=== PATIENT | female | born 1995 | race Caucasian/White ===

== ENCOUNTER → 2021-05-25 09:17 | Outpatient (CLI) | payer OTHER, SELFPAY ==
[2021-05-25 10:03] LABS: Absolute Lymphocyte Count 1.13 X10^3/uL (0.83-4.51); Absolute Neutrophil Count 3.9 X10^3/uL (2.0-7.7); Basophil# 0.04 X10^3/uL; Basophil% 0.7 % (0-1); Eosinophil# 0.15 X10^3/uL; Eosinophils% 2.7 % (0-5); Hematocrit 37.8 % (37-47); Hemoglobin 12.6 g/dL (12.0-15.0); Lymphocyte # 1.13 X10^3/ul (0.83-4.51); Mean Corp Hgb Conc 33.3 g/dL (32-36); Mean Corpuscular Hgb 29.6 pg (27.0-32.0); Mean Corpuscular Volume 88.9 fL (81-99); Mean Platelet Vol. 10.6 fl (6.2-12.0); Monocyte# 0.41 X10^3/uL; Monocyte% 7.3 % (0-10); NRBC Flagged by Analyzer 0 % (0-5); Neutrophil # 3.89 X10^3/uL (2.7-7.7); Neutrophil % 68.9 % (47-70); Platelet Count 184 K/mm3 (150-450); RBC Distribution Width CV 12.3 % (11.6-14.6); Red Blood Count 4.25 M/mm3 (4.2-5.4); White Blood Count 5.6 K/mm3 (4.4-11.0)
[2021-05-25 11:08] LABS: HIV - WCH Non-Reactive (Nonreactive); Hepatitis B Surface Antigen Non-Reactive (Nonreactive); Hepatitis C Antibody Non-Reactive (Nonreactive); Rubella IgG Reactive (Nonreactive); Syphilis Antibodies Non-reactive
[2021-05-27 20:08] LABS: Chlamydia By Nucleic Acid AMP Negative (Negative)
[2021-05-27 22:22] LABS: Gonococcus By Nucleic Acid AMP Negative (Negative)
[2021-05-28 14:14] LABS: HPV Reflexed? NOT INDICATED
== END ==
PROVIDERS: Visit Provider Obstetrics & Gynecology
DX: Z34.82 Encounter for supervision of other normal pregnancy, second trimester (principal)
CPT/HCPCS: 36415; 85025; 86703; 86762; 86780; 86803; 87086; 87340; 87491; 87591; 88175; G0145

== ENCOUNTER → 2021-06-09 | Outpatient (CLI) | payer OTHER, SELFPAY | END | disposition home or self-care (01) | LOC: LABSPEC 14:13 | PROVIDERS: Visit Provider Obstetrics & Gynecology | DX: N39.0 Urinary tract infection, site not specified (principal) | CPT/HCPCS: 87086 ==

== ENCOUNTER → 2021-08-01 | Outpatient (CLI) | payer OTHER, SELFPAY | END | disposition home or self-care (01) | LOC: LABSPEC 15:18 | PROVIDERS: Visit Provider Obstetrics & Gynecology | DX: R31.9 Hematuria, unspecified (principal) | CPT/HCPCS: 87086; 87088 ==

== ENCOUNTER → 2021-08-22 16:19 | Outpatient (CLI) | payer OTHER, SELFPAY ==
[2021-08-22 17:30] LABS: Hematocrit 35.1 % (37-47); Hemoglobin 11.6 g/dL (12.0-15.0); Mean Corpuscular Hgb 30.1 pg (27.0-32.0); Mean Corpuscular Volume 90.9 fL (81-99); Mean Platelet Vol. 9.4 fl (6.2-12.0); Platelet Count 203 K/mm3 (150-450); RBC Distribution Width CV 12.7 % (11.6-14.6); RBC Distribution Width SD 41.6 fl (35.1-43.9); Red Blood Count 3.86 M/mm3 (4.2-5.4); White Blood Count 9.7 K/mm3 (4.4-11.0)
[2021-08-22 17:36] LABS: Glucose Challenge Gest 1H 50g 107 mg/dL (70-140)
== END ==
PROVIDERS: Visit Provider Obstetrics & Gynecology
DX: O26.899 Other specified pregnancy related conditions, unspecified trimester (principal); R35.0 Frequency of micturition; Z3A.00 Weeks of gestation of pregnancy not specified
CPT/HCPCS: 36415; 82950; 85027; 87086; 87088

== ENCOUNTER → 2021-09-05 16:20 | Outpatient (CLI) | payer OTHER, SELFPAY | PROVIDERS: Visit Provider Obstetrics & Gynecology | DX: Z34.82 Encounter for supervision of other normal pregnancy, second trimester (principal) | CPT/HCPCS: 36415; 86850 ==

== ENCOUNTER 2021-11-10 16:43 | Outpatient (CLI) | payer OTHER, SELFPAY | END 2021-11-10 23:59 | disposition short-term general hospital (02) | LOC: WOBLAB 16:44 | PROVIDERS: Visit Provider Obstetrics & Gynecology | DX: Z36.85 Encounter for antenatal screening for Streptococcus B (principal) | CPT/HCPCS: 87081 ==

== ENCOUNTER 2021-12-03 23:21 | Inpatient (IN) | payer OTHER, SELFPAY ==
[2021-12-03 02:51] VITALS: PULSE 202; TEMP 36.7; O2SAT 88
[2021-12-03 02:57] VITALS: BP 123/77; PULSE 79; PULSE 81; O2SAT 98
[2021-12-03 21:19] VITALS: TEMP 35.6
[2021-12-03 21:22] VITALS: BP 141/85; PULSE 73
[2021-12-03] MEDS: Lactated Ringers 500 ML 999 ML IV (23:05)
[2021-12-03 23:20] VITALS: BMI 38.0
[2021-12-03] MEDS: Lactated Ringers 1,000 ML 50 ML IV (23:36)
[2021-12-03 23:49] VITALS: TEMP 37.2
[2021-12-03 23:50] VITALS: PULSE 94; O2SAT 98
[2021-12-04] VITALS (69 sets, daily range): BP systolic 93–152; BP diastolic 50–88; PULSE 63–116; TEMP 36.4–38; O2SAT 77–100
[2021-12-04 00:28] LABS: Absolute Lymphocyte Count 1.38 X10^3/uL (0.83-4.51); Absolute Neutrophil Count 7.4 X10^3/uL (2.0-7.7); Basophil# 0.05 X10^3/uL; Basophil% 0.5 % (0-1); Eosinophil# 0.12 X10^3/uL; Eosinophils% 1.2 % (0-5); Hematocrit 37.2 % (37-47); Hemoglobin 12.3 g/dL (12.0-15.0); Lymphocyte # 1.38 X10^3/ul (0.83-4.51); Lymphocyte % 14.1 % (19-41); Mean Corp Hgb Conc 33.1 g/dL (32-36); Mean Corpuscular Hgb 29.1 pg (27.0-32.0); Mean Corpuscular Volume 87.9 fL (81-99); Mean Platelet Vol. 9.9 fl (6.2-12.0); Monocyte% 7.2 % (0-10); NRBC Flagged by Analyzer 0 % (0-5); Neutrophil # 7.44 X10^3/uL (2.7-7.7); Neutrophil % 76.3 % (47-70); Platelet Count 187 K/mm3 (150-450); RBC Distribution Width CV 13.2 % (11.6-14.6); RBC Distribution Width SD 42.5 fl (35.1-43.9); Red Blood Count 4.23 M/mm3 (4.2-5.4); White Blood Count 9.8 K/mm3 (4.4-11.0)
[2021-12-04] MEDS: Lactated Ringers 500 ML 999 ML IV ×3 (01:45→11:47)
[2021-12-04] MEDS: fentaNYL-bupivacaine (epidural) 100 ML BAG EPIDURAL ×4 (03:20→22:03)
[2021-12-04] MEDS: Lactated Ringers 1,000 ML 200 ML IV ×4 (03:44→20:52)
[2021-12-04] MEDS: Oxytocin 30 units/NS 500 ml 30 UNITS/500 ML IV.SOLN IV (07:03)
[2021-12-04 08:01] LABS: ROM Internal Control Test YES-OK TO RESULT pt. (Internal QC); ROM Patient Test POSITIVE (Negative)
--- NOTE | 2021-12-04 09:44 | PCM.HP.BLA ---
History and Physical Date of Admission: 12/03/21 HPI: 26-year-old G1 at 40/2, JAGDISH 12/02/2021 by LMP, admitted with spontaneous rupture of membranes. Reports contractions. Denies vaginal bleeding. Reports movement. Denies headache, vision changes, chest pain or shortness of breath, nausea or vomiting, fevers or chills. uncomplicated [employer]RAVER [employer] MOLD history: G1 current Medical history: History of nephrolithiasis Surgical history denies Allergies: No known drug allergies Medications: vitamin Social history: Denies tobacco, alcohol, drug use Family history: Noncontributory Review of systems: Negative otherwise stated above Physical exam Vitals:Temp 98.5 ?F, pulse 75, blood pressure 135/55, O2 saturation 97% on room air General: Resting in bed in no acute distress HEENT: Normocephalic/atraumatic, PERRLA Cardiorespiratory: No increased effort, regular heart rate Abdomen: Soft, nontender, gravid Extremities: Minimal edema Musculoskeletal: Full range of motion throughout all extremities, strength 5/5 throughout Neurologic: Cranial nerves 2 through 12 grossly intact CE: 4/80/-3, AROM for bag clear fluid panel: GBS negative on 11/10/2021 Gonorrhea/chlamydia negative HIV negative Hepatitis C/hepatitis B negative/negative Syphilis negative Rubella immune Labs on admission: WBC 9.8, hemoglobin/hematocrit 12.3/37.2, platelets 187 Covid negative heart rate: 140/moderate variability/plus Accel/no decelerations [place]: q 2-3 Assessment/plan: 26-year-old G1 at 40/2 weeks admitted with prelabor rupture of membranes. Uncomplicated . -Admit to labor and delivery, routine orders -GBS negative -Augment with Pitocin if no longer making cervical change Assessment & Plan Assessment/Plan (1) Spontaneous rupture of membranes: (2) Active labor at term:
--- NOTE | 2021-12-04 09:54 | PCM.PN.BLA ---
Progress Note Patient seen early on 12/03/2021 for contractions. Cervix 1 cm per RN, recheck unchanged. status reassuring with reactive NST. Rare contractions. Discharge home with labor precautions
[2021-12-04] MEDS: Acetaminophen 500 MG Tablet PO (13:59)
[2021-12-04] MEDS: Acetaminophen 500 MG Tablet 1000 MG PO (18:02)
--- NOTE | 2021-12-04 21:33 | PN_ITS ---
Progress Note Diagnosis of intraamniotic infection based on two elevated temperature 100.4F. tachycardia also present. Started on ampicillin 2g q6h and gentamicin 5 mg/kg x1. Pt currently pushing at 10 cm. Cat II tracing. Progressing with pushing efforts. Discussed diagnosis with patient and . Hotel Operation Manager will be at delivery.
--- NOTE | 2021-12-04 23:03 | PLAC_PTH ---
PATIENT: EMMANUELLE LOERA LOC: [facility] U#:[id number] AGE/SX: 26/F ROOM: WP005 RE12/03/[address]: Dr. Ludivina Parmar DO : 1995 BED: 1 DIS: 12/06/2021 SPEC #: [id number] RECD: 12/05/21 02:26 STATUS: WILMA MICHEAL #: [id number] SANDER: 12/04/21 23:[address]: Ludivina Parmar DEPT: SURGICAL PATHOLOGY RECD BY: Joi Topete Tissues: Placenta, NOS Procedures: Surgery Specimen Level V HEADER OPERATION: Vaginal delivery PRE-OP DIAGNOSIS: Positive triple I TISSUE SUBMITTED: Placenta MICROSCOPIC DIAGNOSIS Peraza placenta (549 gm): Umbilical cord ? trivascular with acute funisitis. Placental membranes ? acute chorioamnionitis and acute deciduitis. Placental disc ? remote infarct, organizing intraparenchymal hemorrhage. Focal nonspecific chronic villitis, [place]rav[place]ilipp change and increased intraparenchymal fibrin plaques. AM:sj 12/07/2021 MICROSCOPIC DESCRIPTION Slides are reviewed. GROSS DESCRIPTION SPECIMEN: PLACENTA / CLINICAL INFORMATION: A. Weight: 3.2 kg B. Gestational Age: 40 weeks C. Sex: Female PLACENTAL WEIGHT (POST FIXATION): 549 gm PLACENTAL DIMENSIONS: 19 x 16 x 2.8 cm PLACENTAL SHAPE: Usual ovoid PLACENTAL WEIGHT FOR GESTATIONAL AGE: Over 99th percentile MEMBRANES - Present A. Insertion: Marginal B. Site of rupture from edge: At edge of placental disc C. Color of membrane: Serrano-powell D. Abnormalities: None UMBILICAL CORD - Present A. Color: Serrano-powell B. Insertion: Eccentric C. Length: 42 cm D. Diameter: 1.2 cm E. Number of vessels: Three F. Abnormalities: None PLACENTAL DISC - Present A. Color of surface: Serrano-powell B. surface abnormalities: None C. Maternal cotyledons: Intact with minimal tears D. Attached retro placental clot: No clot E. Cut surface: Dark red and spongy F. Lesions: One lesion, plaque-like, white-serrano in color measuring 3.5 x 3.5 x 0.8 cm. G. Separate clot: Absent SECTIONS SUBMITTED: 1. Umbilical cord ( end notched) 2. Umbilical cord, placental end 3. Membrane roll 4. Placental disc, and maternal surfaces, lesion 5. Placental disc, and maternal surfaces 6. Placental disc, and maternal surfaces AM:sj 12/06/2021 TC:2 CPT: 36434
[2021-12-04] MEDS: Oxytocin 30 units/NS 500 ml 30 UNITS/500 ML IV.SOLN 334 UNITS IV (23:08)
--- NOTE | 2021-12-04 23:34 | EX.PCM.OBRPT ---
Maternal Data Information Final JAGDISH: 12/02/21 Vaginal Delivery Operative Information Date of Procedure: 12/04/21 Pre-Operative Diagnosis: Peraza intrauterine , intrapartum infection Post-Operative Diagnosis: [place]aza intrauterine , intrapartum infection Surgery / Procedure Performed: Spontaneous Vaginal Delivery Type of Anesthesia: Epidural Estimated Blood Loss: 350cc Findings Description of Procedure: Spontaneous vaginal delivery viable female. Nuchal cord x1, loose, delivered through. Baby to mom. Cord clamped and cut. Baby moved to waiting secretary office clerk and nursing staff. Spontaneous delivery of placenta. Second-degree laceration repaired in the usual fashion, hemostatic. Maternal fever resolved, no further doses of antibiotics. CBC in morning. Cord Gases: VBG Infant A Gender: Female (1 minute): 5 (5 minute): 8
[2021-12-05] VITALS (14 sets, daily range): BP systolic 99–127; BP diastolic 55–68; PULSE 69–105; RESP 16–18; TEMP 36.2–37.2; O2SAT 89–98
[2021-12-05] MEDS: Ibuprofen 600 MG Tablet PO ×2 (01:27→14:28)
[2021-12-05 05:44] LABS: Absolute Lymphocyte Count 0.94 X10^3/uL (0.83-4.51); Absolute Neutrophil Count 14.4 X10^3/uL (2.0-7.7); Basophil# 0.03 X10^3/uL; Basophil% 0.2 % (0-1); Eosinophil# 0.05 X10^3/uL; Eosinophils% 0.3 % (0-5); Hematocrit 29.4 % (37-47); Hemoglobin 9.8 g/dL (12.0-15.0); Lymphocyte # 0.94 X10^3/ul (0.83-4.51); Lymphocyte % 5.7 % (19-41); Mean Corp Hgb Conc 33.3 g/dL (32-36); Mean Corpuscular Hgb 29.4 pg (27.0-32.0); Mean Corpuscular Volume 88.3 fL (81-99); Mean Platelet Vol. 9.6 fl (6.2-12.0); Monocyte# 0.95 X10^3/uL; Monocyte% 5.8 % (0-10); NRBC Flagged by Analyzer 0 % (0-5); Neutrophil # 14.35 X10^3/uL (2.7-7.7); Neutrophil % 87.5 % (47-70); POSITIVE MORPHOLOGY YES; Platelet Count 139 K/mm3 (150-450); RBC Distribution Width CV 13.3 % (11.6-14.6); RBC Distribution Width SD 42.5 fl (35.1-43.9); Red Blood Count 3.33 M/mm3 (4.2-5.4); White Blood Count 16.4 K/mm3 (4.4-11.0)
[2021-12-05 05:49] LABS: Differential Indicated SCAN CRITERIA MET
--- NOTE | 2021-12-05 08:08 | PCM.PN.OB ---
Subjective Subjective No overnight complaints. Denies fevers chills, chest pain, shortness of breath, abdominal pain Objective Data Objective Data Vital Signs: Vital Signs Temp Pulse Resp BP Pulse Ox 97.2 F L 69 16 116/68 98 12/05/21 08:05 12/05/21 08:05 12/05/21 08:05 12/05/21 08:05 12/05/21 08:05 Oxygen Delivery Method Room Air Weight: 214 lb 11.684 oz Body Mass Index (BMI) 38.0 Intake & Output: Intake and Output for Last 24 Hours 12/03/21 12/04/21 12/05/21 23:59 23:59 23:59 Intake Total 500 / 500 5783.06 / 5783.06 333 / 333 Output Total 1300 / 1300 600 / 600 Balance 500 / 500 4483.06 / 4483.06 -267 / -267 Lab / Micro Data Result Diagrams: 12/05/21 05:30 Labs: Laboratory Results - last 24 hr 12/05/21 05:30: WBC 16.4 H, RBC 3.33 L, Hgb 9.8 L, Hct 29.4 L, MCV 88.3, MCH 29.4, MCHC 33.3, RDW Std Deviation 42.5, RDW Coeff of [place] 13.3, Plt Count 139 L, MPV 9.6, Immature Gran % (Auto) 0.500, Neut % (Auto) 87.5 H, Lymph % (Auto) 5.7 L, [place] % (Auto) 5.8, Eos % (Auto) 0.3, Baso % (Auto) 0.2, Absolute Neuts (auto) 14.4 H, Absolute Lymphs (auto) 0.94, Nucleated RBC % 0 Micro: Microbiology 12/03/21 23:55 Nasal Secretion SARS-CoV-2 Antigen (Rapid) - Final Physical Exam Const alert, oriented x3, no apparent distress, average body habitus, healthy appearing and well nourished Exam Limitations: no limitations HEENT normocephalic and moist oral mucous membranes Head and Scalp: atraumatic Face and Sinus: normal facial exam Eyes PERRL Neck full ROM Resp normal respiratory effort, no retractions and no use of accessory muscles Psych mental status grossly normal, affect normal, speech normal and activity/motor behavior normal Assessment & Plan (1) Vaginal delivery: PLAN: day 1. Breast-feeding. Suspected chorioamnionitis status post antibiotics. Afebrile, asymptomatic. We will continue to monitor signs and symptoms and treat fevers as needed.
--- NOTE | 2021-12-05 10:55 | NURSING ---
300cc in hat. patient also missed hat
[2021-12-05] MEDS: Acetaminophen 500 MG Tablet 1000 MG PO (14:28)
[2021-12-06] MEDS: Ibuprofen 600 MG Tablet PO ×2 (00:31→08:59)
[2021-12-06 00:35] VITALS: BP 116/52; PULSE 86; RESP 18; TEMP 36.3
[2021-12-06 03:41] VITALS: BP 116/72; PULSE 83; RESP 18; TEMP 36.1
[2021-12-06 08:28] VITALS: BP 118/77; PULSE 67; RESP 16; TEMP 36.4
--- NOTE | 2021-12-06 09:13 | PCM.DC.SUM ---
Providers Date of Admission: 12/03/21 Reason For Visit: VAGINAL DELIVERY Diagnosis Discharge Diagnosis (1) Vaginal delivery: Status: Acute Code(s): O80 - Encounter for full-term uncomplicated delivery Medications at Discharge Home Medications vit-iron fum-folic ac 1 tab PO DAILY 12/03/21 ibuprofen 600 mg PO Q8H PRN PRN #30 tab 12/06/21 Hospital Course Operations None Procedures None Summary of Care Provided Hospital Course: 26 year old 1 was admitted with SROM at 40 2/7wga. She had intrapartum fever and was started on Ampicillin/Gentamicin. She had an uncomplicated vaginal delivery. She was discharged to home on day #2 after remaining afebrile x 36 hours. Physical Exam Const alert, oriented x3 and no apparent distress General Appearance: cooperative and comfortable HEENT normocephalic Resp Auscultation: clear to auscultation bilaterally Cardio regular rate, regular rhythm, S1 normal heart sound and S2 normal heart sound OB / External & Speculum: other Uterus Palpation: other OB Fundus firm and nontender Extremity General Extremity: edema bilateral Weight / BMI Weight Weight: 97.4 kg Body Mass Index (BMI) 38.0 ABG / Lab / Microbiology Data Result Diagrams: 12/05/21 05:30 Laboratory: Laboratory Results - last 24 hr 12/05/21 05:30: Screen NEGATIVE, Baby's Blood Type A NEGATIVE, Baby's LIEN NEGATIVE Microbiology: Microbiology 12/03/21 23:55 Nasal Secretion SARS-CoV-2 Antigen (Rapid) - Final D/C Instructions Discharge Diet: No restrictions May resume sexual activity in: 6 weeks Lifting Restrictions: 20-25lb Call your doctor if you observe: Fever of 101 or Higher, Using more than 1 pad per hour, Shortness of breath, Chest pain, Calf discomfort, Uncontrolled pain and - (Persistent or severe headache, vision changes) Please Follow Up With: Arnold Parmar MD When: 3 weeks for telehealth follow up 6 weeks for visit Meaningful Use Info Meaningful Use Diagnoses (Choose all that apply): None applicable Discharge Plan Admission Admit Date/Time: 12/03/21 23:21 Primary Reason for Your Visit: Vaginal delivery Attending Provider: Ludivina Parmar Discharge Orders/Prescriptions Prescriptions: New ibuprofen 600 mg Tablet 600 mg PO Q8H PRN PRN (Reason: Pain Score 1-3) Qty: 30 RF: 0 Continued vit-iron fum-folic ac 65 mg iron- 1 mg Tablet 1 tab PO DAILY RF: 0 Disposition Disposition (needs filled in before D/C Order can be placed): Home, Self Care
[2021-12-06 12:15] VITALS: BP 122/68; PULSE 84; RESP 16; TEMP 36.3
[2021-12-07 15:21] LABS: Pathology Specimen OB SEE PATHOLOGY REPORT
== END 2021-12-06 13:30 | disposition home or self-care (01) | DRG 805 ==
LOC: WP 12-04 03:21
PROVIDERS: Admitting Provider Student in an Organized Health Care Education/Training Program; Referring Provider Student in an Organized Health Care Education/Training Program; Visit Provider Student in an Organized Health Care Education/Training Program
DX: O69.81X0 Labor and delivery complicated by cord around neck, without compression, not applicable or unspecified (principal); Z37.0 Single live birth; O41.1230 Chorioamnionitis, third trimester, not applicable or unspecified; Z87.442 Personal history of urinary calculi; Z3A.40 40 weeks gestation of pregnancy
CPT/HCPCS: 59025; 59050; 84112; 85025; 85461; 86850; 86900; 86901; 87426; 88307; 90384; 99218; J7120; G0378; J2790; J3490

== ENCOUNTER 2021-12-11 15:03 | Emergency (ER) | payer OTHER, SELFPAY ==
[2021-12-11 15:05] VITALS: BP 130/86; PULSE 110; RESP 16; TEMP 36.6; O2SAT 99; BMI 36.3
[2021-12-11 15:25] VITALS: PULSE 87; RESP 16; O2SAT 98
[2021-12-11 15:50] LABS: Absolute Lymphocyte Count 0.87 X10^3/uL (0.83-4.51); Absolute Neutrophil Count 9.7 X10^3/uL (2.0-7.7); Basophil# 0.03 X10^3/uL; Basophil% 0.3 % (0-1); Eosinophil# 0.17 X10^3/uL; Eosinophils% 1.5 % (0-5); Hematocrit 33.3 % (37-47); Hemoglobin 11.3 g/dL (12.0-15.0); Lymphocyte # 0.87 X10^3/ul (0.83-4.51); Lymphocyte % 7.4 % (19-41); Mean Corp Hgb Conc 33.9 g/dL (32-36); Mean Corpuscular Hgb 29.7 pg (27.0-32.0); Mean Corpuscular Volume 87.6 fL (81-99); Mean Platelet Vol. 8.7 fl (6.2-12.0); Monocyte# 0.83 X10^3/uL; Monocyte% 7.1 % (0-10); NRBC Flagged by Analyzer 0 % (0-5); Neutrophil # 9.68 X10^3/uL (2.7-7.7); Neutrophil % 82.5 % (47-70); Platelet Count 279 K/mm3 (150-450); RBC Distribution Width CV 12.8 % (11.6-14.6); White Blood Count 11.7 K/mm3 (4.4-11.0)
[2021-12-11 15:57] LABS: Anion Gap 8 (5-15); BUN 17 mg/dL (7-18); BUN/Creat Ratio 17.3 RATIO (10-20); Calcium,Total 8.8 mg/dL (8.5-10.1); Chloride 103 mmol/L (98-107); Creatinine, Serum 0.98 mg/dL (0.55-1.02); EST Glomerular Filtration Rate 71 mL/min (>60); Est Glom Filt Rate - Afr Amer 86 mL/min (>60); Glucose 98 mg/dL (74-106); Potassium 4.2 mmol/L (3.5-5.1); Sodium Level 134 mmol/L (136-145)
--- NOTE | 2021-12-11 16:11 | CT_ITS ---
STUDY: CT ABDOMEN AND PELVIS WITH CONTRAST REASON FOR EXAM: Female, 26 years old. fever, RLQ pain -- IV PO Contrast RADIATION DOSAGE (If Supplied By Facility): CTDIvol = ( 14.92 ) mGy, DLP = ( 909.68 ) mGycm TECHNIQUE: Transaxial images were obtained from the dome of the diaphragm to the symphysis pubis with oral contrast. Oral and amp; IV Gastrografin and amp; 100mL Isovue-300 was administered. Sagittal and coronal images were reconstructed. Individualized dose optimization techniques were used for this CT. COMPARISON: None. FINDINGS: The visualized lung bases are unremarkable. The visualized portions of the heart are within normal limits. Normal liver. Normal gallbladder and extrahepatic biliary system. Normal spleen. Normal pancreas. Normal bilateral adrenal glands. 3 mm calyceal stone seen in the midpole of the right kidney, 5. 5.4 mm calyceal stone seen in the mid to lower pole of the right kidney, and 2 additional stones are seen in the mid to upper pole junction of the right kidney measuring 2 mm and 6 mm respectively. Several tiny cysts are present in both kidneys which are benign and require no additional imaging. 4-5 less than 3 mm stones are scattered throughout the left kidney. Mild hydronephrosis and proximal hydroureter are present bilaterally, however no radiopaque ureteral or bladder stones are present to suggest obstruction. The enlarged boggy uterus projects into the lower abdomen and exerts mass effect on the ureters and apex of the bladder which is likely the cause for the hydronephrosis. Moderate size right ovary. Normal left ovary. Vascularity is seen bilaterally. Normal left kidney. Normal visualized stomach. Normal small intestine. Normal colon. The appendix is visualized and appears normal, see image 40/114 series 601 coronal images. Normal abdominal aorta. Normal inferior vena cava. Normal retroperitoneum. Normal urinary bladder. Normal abdominal wall. Normal osseous structures. CT/Abdomen/Pelvis WITH Contrast IMPRESSION: 1. Multiple bilateral kidney stones. Mild hydronephrosis and proximal hydroureter are present bilaterally, however no radiopaque ureteral or bladder stones are present to suggest obstruction. The enlarged boggy uterus projects into the lower abdomen and exerts mass effect on the ureters and apex of the bladder which is likely the cause for the hydronephrosis. 2. Moderate size right ovary. Normal left ovary. Vascularity is seen bilaterally. Electronically Signed: Harley Harvey MD at 19:13 EST Reading Location ID and State: [facility] / [place] , Service support ,
--- NOTE | 2021-12-11 16:12 | EDS_ITS ---
HPI History of Present Illness Chief Complaint: Abd Pain Informant: patient Onset/Context/Timing Onset: Today Context: Gradual Onset Current Severity: Mild Maximum Severity: Moderate Narrative Narrative: Patient presents secondary to right lower quadrant pain and fever. Patient had a vaginal delivery 1 week ago. She had intrapartum fever and was treated with ampicillin and gentamicin. She was discharged 2 days after delivery after she had been afebrile for 36 hours. Patient states she had not noted a fever again until today. She developed a fever and chills this afternoon and right lower quadrant abdominal pain. She has no urinary symptoms. PFSH PFS Medical History Kidney stones Home Medications vit-iron fum-folic ac 1 tab PO DAILY 12/03/21 [History Last Taken 12/03/21] ibuprofen 600 mg PO Q8H PRN PRN #30 tab 12/06/21 [Rx Last Taken Unknown] Allergy/AdvReac Type Severity Reaction Status Date / Time No Known Allergies Allergy Verified 12/11/21 15:08 Surgical History Hx of shoulder surgery Social History Smoking Status: Never smoker ROS ROS ED Constitutional Constitutional ED: Reports chills and fever(s) Eyes Eyes: Denies change in vision ENT ENT ED: Denies sore throat Cardiovascular Cardiovascular: Denies chest pain Respiratory/Chest Respiratory/Chest: Denies cough or dyspnea Gastrointestinal Gastrointestinal: Reports abdominal pain; Denies diarrhea, nausea or vomiting Genitourinary Genitourinary ED: Denies dysuria Musculoskeletal Musculoskeletal: Denies back pain Integumentary Denies rash Neurologic Neurologic: Denies headache(s) or weakness Allergic/Immunologic Allergic/Immunologic ED: Denies urticaria EXAM Physical Exam Const Vital Signs: 12/11/21 15:05 12/11/21 15:25 12/11/21 18:09 Temperature 98 F Temperature Source Temporal Pulse Rate 110 H 87 96 Respiratory Rate 16 16 15 Blood Pressure 130/86 H 117/71 Blood Pressure Mean 100 86 Pulse Ox 99 98 97 Oxygen Delivery Method Room Air Room Air Room Air Positive well nourished and well developed General Appearance ED: well developed HEENT Reports moist mucous membranes Eyes PERRL and EOMs intact bilaterally Neck supple Chest Wall inspection of chest normal and palpation of chest normal Resp normal respiratory effort and clear to auscultation bilaterally Cardio regular rate and regular rhythm GI Palpation: soft and tender RLQ Extremity normal to inspection Neuro oriented x3 Sensorium / Orientation: alert Psych mental status grossly normal Skin no rashes or lesions noted MDM MDM MDM Narrative Medical decision making narrative: Patient declined anything for pain. Lab work and urinalysis ordered. Lab Data Attestation: I reviewed the patient's lab results. Labs: Laboratory Results - last 24 hr 12/11/21 12/11/21 12/11/21 15:38 15:38 16:41 WBC 11.7 H RBC 3.80 L Hgb 11.3 L Hct 33.3 L MCV 87.6 MCH 29.7 MCHC 33.9 RDW Std Deviation 41.0 RDW Coeff of [place] 12.8 Plt Count 279 MPV 8.7 Immature Gran % (Auto) 1.200 H Neut % (Auto) 82.5 H Lymph % (Auto) 7.4 L [place] % (Auto) 7.1 Eos % (Auto) 1.5 Baso % (Auto) 0.3 Absolute Neuts (auto) 9.7 H Absolute Lymphs (auto) 0.87 Nucleated RBC % 0 Sodium 134 L Potassium 4.2 Chloride 103 Carbon Dioxide 23.0 Anion Gap 8 BUN 17 Creatinine 0.98 Estim Creat Clear Calc 70.70 Est GFR (MDRD) Af Amer 86 Est GFR (MDRD) Non-Af 71 BUN/Creatinine Ratio 17.3 Glucose 98 Calcium 8.8 Urine Color Yellow Urine Clarity Sl. Cloudy Urine pH 7.0 Ur Specific [place] 1.005 Urine Protein 30 H Urine Glucose (UA) Normal Urine Ketones Negative Urine Occult Blood 250 H Urine Nitrite Negative Urine Bilirubin Negative Urine Urobilinogen Normal Ur Leukocyte Esterase 500 H Urine RBC 0 SEEN Urine WBC 25-50 SEEN Ur Squamous Epith Cells 0-5 SEEN Ur Renal Epithelial Cell 5-10 SEEN Urine Bacteria 0 SEEN Urine Mucus 0 SEEN Radiography Chest X-Ray - ED: 1 View, Read by ED Physician, Normal, Heart, Lungs and Mediastinum Diagnostic Testing: Clinical Impression(s) from Imaging Studies Abdomen/Pelvis CT 12/11/21 16:11 IMPRESSION: 1. Multiple bilateral kidney stones. Mild hydronephrosis and proximal hydroureter are present bilaterally, however no radiopaque ureteral or bladder stones are present to suggest obstruction. The enlarged boggy uterus projects into the lower abdomen and exerts mass effect on the ureters and apex of the bladder which is likely the cause for the hydronephrosis. 2. Moderate size right ovary. Normal left ovary. Vascularity is seen bilaterally. Electronically Signed: Harley Harvey MD at 19:13 EST , Chest X-Ray 12/11/21 17:05 IMPRESSION: No evidence of acute cardiopulmonary process. Electronically Signed: Prateek Morel DO at 17:20 EST , Treatment and Re-Evaluation Comments:: Covid test is negative. Lab work reveals mild leukocytosis with a white count 11.7. Chemistry studies normal. Urinalysis shows 25-50 white cells but 0 bacteria and no nitrates. Chest x-ray reveals no infiltrate. CT scan of the abdomen and pelvis shows mild hydronephrosis they believe secondary to mass- effect on the bladder from distended uterus. No evidence of ureteral stone. Moderate sized right ovary noted. Normal left ovary. Test results discussed with patient and at bedside. Patient discussed with Dr. Arnold Parmar, on-call for [employer]. Patient is to call the office tomorr ow with an update with how she is feeling. They will see her in the office this week for follow-up. Patient has had no fever while in the emergency room here. Discharge Plan Triage Chief Complaint: Abd Pain ED Provider: Ai Mitchell Dx/Rx/DC Orders Clinical Impression: Fever Instructions: ED Abdominal Pain Unkn Cause Fem, ED FUO Adult Prescriptions: No Action vit-iron fum-folic ac 65 mg iron- 1 mg Tablet 1 tab PO DAILY RF: 0 ibuprofen 600 mg Tablet 600 mg PO Q8H PRN PRN (Reason: Pain Score 1-3) Qty: 30 RF: 0 Referrals: Arnold Galvan [Other] Ludivina Parmar DO [STAFF PHYSICIAN] - 3-5 Days Disposition Disposition: Home, Self Care
[2021-12-11 16:49] LABS: Bacteria 0 SEEN /hpf (None Seen); Mucous, Urine 0 SEEN /hpf (<or=2+); Red Blood Cells-Urine 0 SEEN /hpf (0-5)
--- NOTE | 2021-12-11 17:05 | RAD_ITS ---
STUDY: X-RAY CHEST REASON FOR EXAM: Female, 26 years old. fever TECHNIQUE: Single AP portable view of the chest. COMPARISON: None. FINDINGS: The lungs are clear and expanded. There is no demonstrated pleural abnormality. Normal size heart. Normal mediastinum and maia. Normal visualized pulmonary arteries. Normal visualized aortic arch and descending thoracic aorta. Normal visualized thoracic spine. Normal visualized ribs, clavicles, and shoulders. There is no demonstrated abnormality of the visualized soft tissue structures of the upper abdomen. RAD/Chest 1 View (Portable) IMPRESSION: No evidence of acute cardiopulmonary process. Electronically Signed: Prateek Morel DO at 17:20 EST ,
[2021-12-11 17:24] LABS: Color, Urine Yellow (Yellow); Glucose, Dipstick Normal (Normal); Ketone-Dipstick Negative (Negative); Leukocyte Esterase-Dipstick 500 /ul (Negative); Nitrite-Dipstick Negative (Negative); Occult Blood-Urine 250 /ul (Negative); Protein-Dipstick 30 mg/dl (Negative); Specific Gravity, Urine 1.005 (1.002-1.030); Urine Bilirubin Dipstick Negative (Negative); Urine Clarity Sl. Cloudy (Clear); Urine Urobilinogen Normal (Normal)
[2021-12-11 17:45] LABS: Renal Epithelial Cells 5-10 SEEN /hpf (0-5); White Blood Cells 25-50 SEEN /hpf (0-5)
[2021-12-11 17:46] LABS: Squamous Epithelial Cells - UA 0-5 SEEN /hpf (5-10)
[2021-12-11 18:09] VITALS: BP 117/71; PULSE 96; RESP 15; O2SAT 97
[2021-12-11 19:57] VITALS: BP 110/66
== END 2021-12-11 19:59 | disposition home or self-care (01) ==
PROVIDERS: Emergency Provider Emergency Medicine; Visit Provider Emergency Medicine
DX: O99.893 Other specified diseases and conditions complicating puerperium (principal); N13.30 Unspecified hydronephrosis; R10.31 Right lower quadrant pain; R50.9 Fever, unspecified; Z20.822 Contact with and (suspected) exposure to COVID-19
CPT/HCPCS: 71045; 74177; 80048; 81001; 85025; 87426; 99283; Q9967; A4216